=== PATIENT | female | born 1955 | race Caucasian/White ===

== ENCOUNTER 2019-05-30 05:00 | Day surgery (SDC) | payer BC ==
[2019-05-29 10:14] LABS: HEMATOCRIT 37.6 % (36.0-48.0); MCH 32.7 pg (26.0-34.0); MCHC 34.6 g/dL (31.0-37.0); MCV 94.5 fL (80.0-100.0); MEAN PLATELET VOLUME 8.7 fL (7.4-10.4); RBC 3.98 10x6/uL (4.00-5.40); RDW 12.5 % (11.5-14.5); WBC 8.2 10x3/uL (4.8-10.8)
[~2019-05-30] VITALS: Ht 154.9 cm; Wt 43.5 kg
[~2019-05-30 05:00] MED LIST: ADDERALL 30 MG30 MG PO; CYMBALTA60 MG PO; FLUTICASONE PRO16 GM NASAL; KLONOPIN1 MG PO; LIPITOR40 MG PO; OXYBUTYNIN CL PO; REMERON15 MG PO; SOMA250 MG PO; SYMBICORT 80-10.2 GM INH
[2019-05-30 05:53] VITALS: BP 102/54; Ht 154.9 cm; Wt 43.5 kg
--- NOTE | 2019-05-30 08:40 | NUR ---
CARE TO RICHARD LANDON RN @[phone]
--- NOTE | 2019-05-30 09:25 | NUR ---
0915 FL DIET SERVED.
--- NOTE | 2019-05-30 10:12 | OP ---
PATIENT NAME: JULES ANDERSON MEDICAL RECORD: [id number] :55 LOCATION:D.OPS ADMISSION DATE: SURGEON: JOSR MONTELONGO DPM DATE OF OPERATION: 05/30/2019 PREOPERATIVE DIAGNOSES: 1. Hammertoe deformity, right second digit. 2. Hammertoe deformity, left second digit. POSTOPERATIVE DIAGNOSES: 1. Hammertoe deformity, right second digit. 2. Hammertoe deformity, left second digit. PROCEDURES: 1. PIPJ fusion, right second digit. 2. PIPJ fusion, left second digit. ANESTHESIA: Local with IV sedation. HEMOSTASIS: Bilateral ankle tourniquets at 250 mmHg. PREOPERATIVE DETAILS: The patient was taken to the OR and placed on the operating table in a supine position. This was followed by induction of general anesthesia and infiltration of local anesthetic utilizing lidocaine and Marcaine plain, approximately 4 cc around the second digit bilaterally. The bilateral extremities were then prepped and draped in the usual aseptic technique followed by exsanguination and inflation of tourniquet on bilateral sides. PROCEDURE #1: PIPJ fusion, right second PIPJ. An incision was made over the dorsal aspect of the PIPJ in a transverse fashion. The incision was deepened down through the extensor longus tendon, which was transected. The joint was exposed. A sagittal saw was used to resect the joint. Drill holes were made and the hammer tube graft was placed in the proximal phalanx first and then the capital fragment on top of it, closing down the fusion site nicely. Excellent fixation was noted. The extensor longus tendon was repaired with 4-0 Rapide and the skin was closed with 4-0 Rapide in a subcuticular technique followed by Dermabond. Adaptic, 4 x 4 and conform followed by Coban were used to dress the wound. Tourniquet was deflated. PROCEDURE #2: PIPJ fusion, left second digit. The procedure was performed as described above without variation and no complication. POSTOPERATIVE DETAILS: The patient tolerated the procedure well and left the OR with vital signs stable and vascular status at preoperative levels. The patient was transported to recovery per anesthesia in stable condition. TRANSINT:[id number] Voice Confirmation ID: [id number] DOCUMENT ID: [id number] OPERATIVE REPORT [id number] JULES ANDERSON HUGENTOBLER, OVALLES DPM at 1012 CC: [id number] DICTATION DATE: 05/30/1934 [employer]: 05/30/19 0854 [facility] [address] [facility] [place] [address]
== END 2019-05-30 10:10 | disposition home or self-care (01) ==
LOC: D.OPS 05:00 → D.PAN 07:00 → D.OPS 10:10
PROVIDERS: Anesthesiology; ATTEND Podiatrist
DX: M20.42 Other hammer toe(s) (acquired), left foot (principal); M20.41 Other hammer toe(s) (acquired), right foot; Z01.812 Encounter for preprocedural laboratory examination

== ENCOUNTER → 2020-06-13 12:13 | Outpatient (CLI) | payer OTHER ==
[2019-05-30 05:53] VITALS: BMI 18.1
== END | disposition home or self-care (01) ==
LOC: D.MRI 12:13
PROVIDERS: ATTEND Nurse Practitioner Family
DX: M66.821 Spontaneous rupture of other tendons, right upper arm (principal)

== ENCOUNTER 2020-07-18 20:03 | Day surgery (SDC) | payer OTHER ==
[2020-07-17 10:16] LABS: BASOPHILS 1.1 % (0-2); EOSINOPHILS 2.7 % (0-7); HEMATOCRIT 42.3 % (36.0-48.0); HEMOGLOBIN 13.9 g/dL (12-16); IMMATURE GRANULOCYTES 0.2 % (0-5); LYMPHOCYTES 36.2 % (15-50); MCH 31.8 pg (26.0-34.0); MCHC 32.9 g/dL (31.0-37.0); MCV 96.8 fL (80.0-100.0); MEAN PLATELET VOLUME 8.7 fL (7.4-10.4); MONOCYTES 6.8 % (2-11); RBC 4.37 10x6/uL (4.00-5.40); RDW 12.5 % (11.5-14.5); WBC 9.6 10x3/uL (4.8-10.8)
[2020-07-17 10:33] LABS: PLATELET COUNT 303 10x3/uL (130-400)
[~2020-07-18] VITALS: Ht 154.9 cm; Wt 47.6 kg
[2020-07-18 10:44] VITALS: BP 131/66; Ht 154.9 cm; Wt 47.6 kg
--- NOTE | 2020-07-18 12:34 | NUR ---
1222 PT IS UPSET OF DELAY FOR SURGERY. TEARFUL AND ANXIOUS. PT IS ASKING FOR ANOTHER VALIUM.
--- NOTE | 2020-07-18 17:21 | NUR ---
PATIENT DENIES PAIN AT THIS TIME. DIMINIHSED TOUCH WHEN TOUCHING EXTREMITY.
--- NOTE | 2020-07-18 19:59 | NUR ---
1825 IV DC'D WITH CANNULA INTACT, PRESSURE HELD AND DRSG PLACED. DISCHARGE INSTRUCTIONS GIVEN AND BOTH PT A PARTNER VERBALIZED AN UNDERSTANDING. OPERATIVE SITE UNCHANGED AND NERVE BLOCK IN EFFECT. DISCHARGED IN STABLE CONDITION AND WITHOUT C/O
[~2020-07-18 20:03] MED LIST changes: +MOBIC7.5 MG PO; +NEURONTIN600 MG PO; +OMEPRAZOLE40 MG PO
--- NOTE | 2020-07-20 11:03 | OP ---
PATIENT NAME: JULES SOUTH MEDICAL RECORD: [id number] :55 LOCATION:[facility] ADMISSION DATE: SURGEON: DOROTEO HARRISON DO DATE OF OPERATION: 07/18/2020 PROCEDURE PERFORMED: Right shoulder arthroscopy with subacromial decompression, distal clavicle excision, labral debridement, and rotator cuff repair and removal of hardware of the right hand and wrist. PREOPERATIVE DIAGNOSES: Right shoulder complete full thickness rotator cuff tear, proximal biceps tear, subacromial impingement, acromioclavicular joint arthritis and painful hardware of the right wrist and hand. POSTOPERATIVE DIAGNOSES: Right shoulder complete full thickness rotator cuff tear, proximal biceps tear, subacromial impingement, acromioclavicular joint arthritis and painful hardware of the right wrist and hand. INDICATIONS: Ms. South is a 65-year-old female who had a right wrist fusion quite some time ago, the hardware was giving her a hard time and it was hurting and she also had a prominence of the ulnar styloid. She wanted something done. I told her we try to remove the hardware first see if that helped her pain. She was okay with that and then we talked about her shoulder. She had a rupture of the proximal biceps. I will debride the stump and the labrum and then fix the rotator cuff and do the subacromial decompression, distal clavicle excision. She would be at risk for infection, bleeding, damage to nerves and vessels in the area, continued pain, arthrofibrosis, retear of the rotator cuff tendon and even and she signed a consent. SURGEON: Doroteo Harrison DO DESCRIPTION OF PROCEDURE: The patient was taken to the operative suite, laid in the left lateral decubitus position with the right shoulder up. She received a block by anesthesia and given 900 mg clindamycin prior to this. The patient was sedated and LMA was placed. The right upper extremity was then prepped and draped in sterile fashion. Timeout was performed. Everyone was in agreeance with the correct side, site, patient, and procedure. We then began by making an incision over the second and third webspace of the right hand and dissecting down to the hardware. There was a long Steinmann pin that was in. I then grabbed it with a rongeur and pulled it out. X-rays were taken to be sure that it was completely removed. I then closed the site with a 4-0 nylon in a running fashion. I then addressed the shoulder through the posterior portal with an 18-gauge spinal needle. I inflated the shoulder joint with 60 cc of normal saline. I then established a posterior portal with an 11-blade scalpel. Trocar entered into the joint. I then got in the subacromial space and saw there was a full thickness complete tear of the supraspinatus, infraspinatus, subscapularis, was in good repair, but there was no retraction. I then went to the shoulder joint and saw the stump of the long head of the biceps tendon. I made an anterior portal with an 18-guaze spinal needle and 11-blade scalpel, widened the shaver and chewed back the stump. The cartilage was in good repair grade II chondromalacia noted. There was nothing in the inferior joint and subscapularis was intact. I then made a lateral portal with an 18-gauge spinal needle and 11-blade scalpel, went to the subacromial space. The subacromial decompression, acromioplasty and distal clavicle excision, opened up the AC joint to approximately 7 mm and then over the lateral portal with a 15 blade scalpel made, blunt dissection down with [place]'s down to the rotator cuff tendon OPERATIVE REPORT [id number] JULES SOUTH tear. Decorticated the humerus and put 2 anchors in the medial row through the rotator cuff tendon brought over the 2 lateral row anchors crossing them and then sutured a Regeneten inplant on with a 4-0 Monocryl over the repair site. We then irrigated. Eriberto Vu, certified medical transcriptionist, closed the portal sites with 4-0 Monocryl in an inverted interrupted fashion. The rotator cuff repair site with 2-0 Vicryl in inverted interrupted fashion, 4-0 Monocryl running on the skin and then Dermabond glue on all the incision of the shoulder. Dressed with Telfa and Tegaderm. She was awakened, put in a sling and taken to recovery in stable condition. BLOOD LOSS: Minimal. COMPLICATIONS: None. TRANSINT:[id number] Voice Confirmation ID: [id number] DOCUMENT ID: [id number] DOROTEO HARRISON DO at 1103 CC: [id number] DICTATION DATE: 07/18/20 1705 PURLER: 07/19/[id number] [facility] [place] 07/18/20 [facility] [address] [place] [address]
== END 2020-07-18 20:04 | disposition home or self-care (01) ==
LOC: D.OPS 20:03
PROVIDERS: Anesthesiology; ATTEND Orthopaedic Surgery
DX: M75.121 Complete rotator cuff tear or rupture of right shoulder, not specified as traumatic (principal); S46.211A Strain of muscle, fascia and tendon of other parts of biceps, right arm, initial encounter; M25.811 Other specified joint disorders, right shoulder; M19.011 Primary osteoarthritis, right shoulder; T85.848A Pain due to other internal prosthetic devices, implants and grafts, initial encounter; J44.9 Chronic obstructive pulmonary disease, unspecified; Z72.0 Tobacco use; K21.9 Gastro-esophageal reflux disease without esophagitis; X58.XXXA Exposure to other specified factors, initial encounter

== ENCOUNTER → 2020-12-23 13:46 | Outpatient (CLI) | payer OTHER ==
[2020-07-18 10:44] VITALS: BMI 19.8
== END | disposition home or self-care (01) ==
LOC: D.MRI 12-22 13:00
PROVIDERS: ATTEND Nurse Practitioner Family
DX: M75.122 Complete rotator cuff tear or rupture of left shoulder, not specified as traumatic (principal)